=== PATIENT | female | born 1990 | race Caucasian/White ===

== ENCOUNTER 2017-04-15 12:50 | Emergency (ER) | payer OTHER, MEDICARE ==
[~2017-04-15] VITALS: Ht 154.9 cm; Wt 56.8 kg
[~2017-04-15 12:50] MED LIST: SPRINTEC1 EACH
[2017-04-15] MEDS ORDERED: MOTRIN600 MG PO (14:08)
[2017-04-15 14:28] VITALS: BP 123/86
== END 2017-04-15 14:28 | disposition home or self-care (01) ==
LOC: EME 12:50
DX: S83.91XA Sprain of unspecified site of right knee, initial encounter (principal); W17.89XA Other fall from one level to another, initial encounter
CPT/HCPCS: 73564; 99281; 99283